=== PATIENT | male | born 2000 | race Two or more races ===

== ENCOUNTER 2024-11-12 20:29 | Emergency (ER) | payer OTHER ==
[~2024-11-12] VITALS: Ht 182.9 cm; Wt 105.3 kg
[2024-11-12 20:57] VITALS: BP 129/75; PULSE 66; RESP 18; O2SAT 96
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
== END 2024-11-12 22:07 | disposition home or self-care (01) ==
LOC: ER 20:29
DX: S80.02XA Contusion of left knee, initial encounter (principal); X58.XXXA Exposure to other specified factors, initial encounter; Y93.89 Activity, other specified; Y92.89 Other specified places as the place of occurrence of the external cause; Y99.8 Other external cause status